=== PATIENT | female | born 1965 ===

== ENCOUNTER 2022-02-16 06:08 | Day surgery (SDC) | payer OTHER ==
[~2022-02-16 06:08] MED LIST: ATORVASTATIN CA20 MG PO; SYNTHROID50 MCG PO
[2022-02-16] MEDS ORDERED: TYLENOL325 M1 PO (12:23)
== END 2022-02-16 17:35 | disposition home or self-care (01) ==
LOC: CIR.AMB 06:08
PROVIDERS: ATTEND Obstetrics & Gynecology Gynecology
DX: N85.01 Benign endometrial hyperplasia (principal); Z20.822 Contact with and (suspected) exposure to COVID-19; Z88.6 Allergy status to analgesic agent; E03.9 Hypothyroidism, unspecified; E78.5 Hyperlipidemia, unspecified